=== PATIENT | female | born 1965 | race Caucasian/White ===

== ENCOUNTER 2019-04-03 18:52 | Inpatient (IN) | payer OTHER, SELFPAY ==
[~2019-04-03] VITALS: Ht 165.1 cm; Wt 103.7 kg
[~2019-04-03 18:52] MED LIST: ATIV1TAB2 OR; HALO10TA4 OR; PAXI20TA OR; cogentin PO
[2019-04-03 19:40] LABS: HEMATOCRIT 46.3 % (36.0-47.0); HEMOGLOBIN 14.7 g/dl (12.0-15.5); MEAN CORPUSCULAR HEMOGLOBIN 29.7 pg (27.0-33.0); MEAN CORPUSCULAR HGB CONC 31.7 g/dl (32.0-36.5); MEAN CORPUSCULAR VOLUME 93.5 fl (80.0-96.0); PLATELET COUNT, AUTOMATED 344 10^3/uL (150-450); RED BLOOD COUNT 4.95 10^6/uL (4.00-5.40); WHITE BLOOD COUNT 10.3 10^3/uL (4.0-10.0)
[2019-04-03 20:23] LABS: AMPHETAMINES LEVEL URINE NEGATIVE (NEGATIVE); BARBITURATES URINE NEGATIVE (NEGATIVE); BENZODIAZEPINES URINE NEGATIVE (NEGATIVE); CANNABINOIDS URINE NEGATIVE (NEGATIVE); COCAINE METABOLITE URINE NEGATIVE (NEGATIVE); METHADONE URINE NEGATIVE (NEGATIVE); OPIATES URINE NEGATIVE (NEGATIVE); PHENCYCLIDINE URINE NEGATIVE (NEGATIVE)
[2019-04-03 20:24] LABS: ACETAMINOPHEN LEVEL < 2.0 UG/ML (10.0-30.0); ALBUMIN 3.8 GM/DL (3.2-5.2); ALT/SGPT 17 U/L (12-78); BILIRUBIN,DIRECT < 0.1 MG/DL (0.0-0.2); BILIRUBIN,TOTAL 0.2 MG/DL (0.2-1.0); BLOOD UREA NITROGEN 9 MG/DL (7-18); CALCIUM LEVEL 9.2 MG/DL (8.5-10.1); CARBON DIOXIDE LEVEL 26 MEQ/L (21-32); CHLORIDE LEVEL 108 MEQ/L (98-107); CREATININE FOR GFR 0.69 MG/DL (0.55-1.30); ETHYL ALCOHOL (ETHANOL) < 0.003 % (0.000-0.010); GLOMERULAR FILTRATION RATE > 60.0 (>51); GLUCOSE, FASTING 108 MG/DL (70-100); SODIUM LEVEL 141 MEQ/L (136-145); TOTAL PROTEIN 7.1 GM/DL (6.4-8.2)
[2019-04-03] MEDS ORDERED: MAALOX 30 ML SUSP *UDC PO PRN (22:45)
[2019-04-03] MEDS ORDERED: MOM 30ML SUSPENSION UDC PO PRN (22:45)
[2019-04-04 02:16] VITALS: BP 143/99
[2019-04-04 06:27] VITALS: BP 135/73
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
[2019-04-04] MEDS ORDERED: KETOROLAC TROMETHAMINE 10 MG TAB PO ONE (16:00)
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
[2019-04-04 16:21] VITALS: BP 128/64
--- NOTE | 2019-04-04 17:56 | REP ---
Right knee series: Five views. History: Right knee pain. Findings: Five views of the right knee demonstrate normal bones and joints. There are two dystrophic calcifications in the pretibial soft tissues anteriorly. No other soft tissue abnormality is seen. No evidence of arthropathy or joint effusion. No fracture seen. Impression: Negative radiographs of the right knee. Electronically Signed by Ezequiel Govea MD 04/04/2019 05:48 P
[2019-04-04] MEDS: NICOTINE POLACRILEX 2 MG GUM PO PRN (19:52)
[2019-04-04] MEDS: OLANZapine ORAL DISINTEGRATING TAB 5MG PO SCH (20:58)
[2019-04-05 07:02] VITALS: BP 122/74
[2019-04-05] MEDS: KETOROLAC TROMETHAMINE 10 MG TAB PO PRN ×2 (08:52→17:31)
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
[2019-04-05] MEDS: NICOTINE POLACRILEX 2 MG GUM PO PRN (16:58)
[2019-04-05 17:12] VITALS: BP 118/71
[2019-04-05] MEDS: OLANZapine ORAL DISINTEGRATING TAB 5MG PO SCH (20:23)
[2019-04-05] MEDS: PALIPERIDONE 3 MG ER TAB (INVEGA) PO SCH (20:23)
[2019-04-05] MEDS: OLANZapine 5 MG TAB PO PRN (20:23)
[2019-04-05] MEDS: traZODone 50 MG TAB PO PRN (20:23)
[2019-04-06 06:36] VITALS: BP 106/58
[2019-04-06] MEDS: KETOROLAC TROMETHAMINE 10 MG TAB PO PRN ×2 (10:39→21:09)
[2019-04-06] MEDS: NICOTINE POLACRILEX 2 MG GUM PO PRN (15:41)
[2019-04-06 16:35] VITALS: BP 120/80
--- NOTE | 2019-04-06 18:54 | MHIPN ---
DATE: 04/06/2019 VITAL SIGNS: Blood pressure 106/58, pulse 48, temperature 98. CHIEF COMPLAINT: She says she feels okay. SUBJECTIVE: She is seen for followup, in the presence of staff. She says she feels okay, does not elaborate much, indicates has slept well, moods have been good. She says she had blurred vision since an increase in medication, but it is unclear which medication has been increased. MENTAL STATUS EXAMINATION: She is neat. She is guarded, answers questions briefly, coherently. There is no agitation. No psychomotor retardation. Affect fair range. Denies thoughts of harming herself or anyone else. There are times it seems that she is responding to internal stimuli, though that is not quite clearcut. No fluctuation of consciousness. Judgment and insight remain compromised. ASSESSMENT: Schizophrenia. PLAN: Continue current care as well as encourage participation in activities in the unit. Crispin is being cross tapered with olanzapine, this may account for the blurring of vision possibly. We will monitor this. Meanwhile, she is to continue with the rest of her care.
[2019-04-06] MEDS: OLANZapine ORAL DISINTEGRATING TAB 5MG PO SCH (21:08)
[2019-04-06] MEDS: PALIPERIDONE 3 MG ER TAB (INVEGA) PO SCH (21:08)
[2019-04-07 06:31] VITALS: BP 128/75
[2019-04-07] MEDS: KETOROLAC TROMETHAMINE 10 MG TAB PO PRN (09:48)
[2019-04-07] MEDS: OLANZapine 5 MG TAB PO PRN (11:46)
[2019-04-07 16:55] VITALS: BP 94/53
[2019-04-07] MEDS: PALIPERIDONE 3 MG ER TAB (INVEGA) PO SCH (20:10)
[2019-04-07] MEDS: OLANZapine ORAL DISINTEGRATING TAB 5MG PO SCH (20:10)
[2019-04-07] MEDS: ACETAMINOPHEN TAB 650MG DOSE (2X325MG) PO PRN (20:11)
[2019-04-08 06:35] VITALS: BP 155/80
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
[2019-04-08] MEDS: ACETAMINOPHEN TAB 650MG DOSE (2X325MG) PO PRN (11:57)
[2019-04-08] MEDS: KETOROLAC TROMETHAMINE 10 MG TAB PO PRN (13:14)
[2019-04-08 14:00] VITALS: BP 114/64
--- NOTE | 2019-04-08 18:47 | MHIPN ---
DATE: 04/07/2019 VITAL SIGNS: Blood pressure 128/75, pulse 57, temperature 97.6. CHIEF COMPLAINT: Says feels okay. SUBJECTIVE: She is seen for followup in the presence of staff. Says feels okay except for pain in the right knee. Says experienced that this morning and indicates that usually Toradol is effective but not today. She says that she slept okay last night. She has been seen in the lounge interacting with others, and has appeared relatively comfortable. Appetite is good. MENTAL STATUS EXAMINATION: She is neat. She remains somewhat guarded. There is no agitation. No psychomotor retardation. Affect displays a fair range. Denies any thoughts of harming herself or anyone else. At present, does not appear to be internally preoccupied. No delusions or ideations elicited. No fluctuation of consciousness. Judgment and insight remain compromised. ASSESSMENT: 1. Schizophrenia. PLAN: Continue current care, including the Invega and olanzapine, which are being cross-tapered. Suggest should pain in the right knee continue that she is seen by the hospitalist. Further recommendations will be made by the assigned psychiatrist tomorrow. We met for 15 minutes.
[2019-04-08] MEDS: PALIPERIDONE 6 MG ER TAB (INVEGA) PO SCH (20:52)
[2019-04-08] MEDS: traZODone 50 MG TAB PO PRN (22:33)
[2019-04-09 06:20] VITALS: BP 112/62
[2019-04-09] MEDS: ACETAMINOPHEN TAB 650MG DOSE (2X325MG) PO PRN ×2 (06:21→20:48)
[2019-04-09] MEDS: KETOROLAC TROMETHAMINE 10 MG TAB PO PRN (09:03)
[2019-04-09] MEDS: NICOTINE POLACRILEX 2 MG GUM PO PRN (10:01)
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
[2019-04-09 17:49] VITALS: BP 136/86
[2019-04-09] MEDS: PALIPERIDONE 6 MG ER TAB (INVEGA) PO SCH (20:48)
[2019-04-09] MEDS: traZODone 50 MG TAB PO PRN (23:38)
[2019-04-10 06:18] VITALS: BP 113/70
[2019-04-10] MEDS: ACETAMINOPHEN TAB 650MG DOSE (2X325MG) PO PRN ×2 (09:26→17:37)
[2019-04-10] MEDS: NICOTINE POLACRILEX 2 MG GUM PO PRN ×2 (10:20→19:18)
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
[2019-04-10 16:00] VITALS: BP 119/79
[2019-04-10] MEDS: LIDOCAINE 5% OINT 30 GM TOP SCH (17:50)
[2019-04-10] MEDS: PALIPERIDONE 3 MG ER TAB (INVEGA) PO SCH (20:48)
[2019-04-11 06:24] VITALS: BP 133/65
[2019-04-11] MEDS: ACETAMINOPHEN TAB 650MG DOSE (2X325MG) PO PRN ×2 (08:21→20:44)
[2019-04-11] MEDS: LIDOCAINE 5% OINT 30 GM TOP SCH ×2 (09:00→09:50)
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
[2019-04-11] MEDS: NICOTINE POLACRILEX 2 MG GUM PO PRN ×2 (12:09→17:15)
[2019-04-11 15:46] VITALS: BP 142/87
[2019-04-11] MEDS: OLANZapine 5 MG TAB PO PRN (17:15)
[2019-04-11] MEDS: PALIPERIDONE 3 MG ER TAB (INVEGA) PO SCH (20:44)
[2019-04-12 06:11] VITALS: BP 154/89
[2019-04-12] MEDS: ACETAMINOPHEN TAB 650MG DOSE (2X325MG) PO PRN ×2 (06:57→19:51)
[2019-04-12] MEDS: LIDOCAINE 5% OINT 30 GM TOP SCH (09:00)
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
[2019-04-12] MEDS: NICOTINE POLACRILEX 2 MG GUM PO PRN ×2 (12:16→16:06)
[2019-04-12 15:10] VITALS: BP 129/82
[2019-04-12] MEDS: OLANZapine 5 MG TAB PO PRN (16:06)
[2019-04-12] MEDS: PALIPERIDONE 3 MG ER TAB (INVEGA) PO SCH (20:19)
[2019-04-13 06:11] VITALS: BP 102/56
[2019-04-13] MEDS: LIDOCAINE 5% OINT 30 GM TOP SCH (08:12)
[2019-04-13] MEDS: NICOTINE POLACRILEX 2 MG GUM PO PRN ×2 (09:44→19:41)
[2019-04-13] MEDS: OLANZapine 5 MG TAB PO PRN ×2 (12:48→19:40)
[2019-04-13 15:32] VITALS: BP 116/65
[2019-04-13] MEDS: PALIPERIDONE 3 MG ER TAB (INVEGA) PO SCH (20:20)
[2019-04-14 06:17] VITALS: BP 124/80
[2019-04-14] MEDS: ACETAMINOPHEN TAB 650MG DOSE (2X325MG) PO PRN (09:00)
[2019-04-14] MEDS: OLANZapine 5 MG TAB PO PRN ×2 (09:00→19:33)
[2019-04-14] MEDS: LIDOCAINE 5% OINT 30 GM TOP SCH (09:01)
[2019-04-14] MEDS: NICOTINE POLACRILEX 2 MG GUM PO PRN ×2 (09:49→15:54)
[2019-04-14 16:05] VITALS: BP 105/69
[2019-04-14] MEDS: PALIPERIDONE 3 MG ER TAB (INVEGA) PO SCH (22:45)
[2019-04-15] MEDS: NICOTINE POLACRILEX 2 MG GUM PO PRN ×2 (06:40→11:51)
[2019-04-15 06:48] VITALS: BP 132/59
[2019-04-15] MEDS: ACETAMINOPHEN TAB 650MG DOSE (2X325MG) PO PRN (07:03)
[2019-04-15] MEDS: LIDOCAINE 5% OINT 30 GM TOP SCH (08:16)
[2019-04-15] MEDS: OLANZapine 5 MG TAB PO PRN (08:32)
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
[2019-04-15] MEDS ORDERED: PALI1TAB4 PO ×2 (10:47→14:15)
[2019-04-15] MEDS ORDERED: NICO2GUM PO ×2 (10:47→14:15)
== END 2019-04-15 14:22 | disposition home or self-care (01) | DRG 750 ==
LOC: M ED 18:52 → M ED INP 22:36 → M PSY 04-04 02:09
PROVIDERS: ADMIT Psychiatry & Neurology Addiction Medicine; ATTEND Psychiatry & Neurology Addiction Medicine
DX: F20.9 Schizophrenia, unspecified (principal); Z91.040 Latex allergy status; Z88.1 Allergy status to other antibiotic agents; Z88.8 Allergy status to other drugs, medicaments and biological substances